=== PATIENT | female | born 1975 | race Caucasian/White ===

== ENCOUNTER 2017-04-05 23:44 | Emergency (ER) | payer MEDICAID ==
[~2017-04-05] VITALS: Ht 157.5 cm; Wt 63.8 kg
[2017-04-05 23:57] VITALS: BP 136/90
[2017-04-06] MEDS ORDERED: GABA-531 PO (00:04)
[2017-04-06] MEDS ORDERED: OXCA600T5 PO (00:04)
[2017-04-06] MEDS ORDERED: LORAZEPAM 1MG TABLET PO ONE (03:30)
[2017-04-06] MEDS ORDERED: GABAPENTIN 300MG CAPSULE PO ONE (03:30)
== END 2017-04-06 04:15 | disposition home or self-care (01) ==
LOC: ER 23:44
DX: F41.0 Panic disorder [episodic paroxysmal anxiety] (principal); Z91.14 Patient's other noncompliance with medication regimen; Z88.5 Allergy status to narcotic agent
CPT/HCPCS: 99284